=== PATIENT | male | born 1965 | race African-American/Black ===

== ENCOUNTER 2017-09-12 20:49 | Inpatient (IN) | payer OTHER ==
[~2017-09-12] VITALS: Ht 175.3 cm; Wt 86.2 kg
[2017-09-12] MEDS ORDERED: LOSARTAN POTASS25 MG ORAL (21:14)
[2017-09-12] MEDS ORDERED: Morphine Sulfate 4mg/ml Inj IVP ONE (21:30)
--- NOTE | 2017-09-12 21:43 | Emergency Room Report ---
History of Present Illness General Chief Complaint: Abdominal Pain Source: Patient Present Illness HPI 51-year-old male with history of hypertension, diverticulitis 2 years ago, presents with abdominal pain for one day Patient states pain started gradually, localized to mid and left lower quadrant , non radiating, sharp in nature, intermittent. No relieving or exacerbating factors. Severity is 6/10. Pt reports n/v, 10 episodes of nbnb vomiting, 2 episodes of watery non bloody diarrhea Denies fever, chills. No hx of abdominal surgeries. No hx of endoscopies/colonoscopies. Allergies: Coded Allergies: No Known Allergies (Unverified , 09/12/17) Patient History Past Medical History: see triage record Past Surgical History: none Pertinent Family History: none Reviewed Nursing Documentation: PMH: Agreed, PSxH: Agreed Nursing Documentation-PMH Hx Hypertension: Yes Review of Systems All Other Systems: negative except mentioned in HPI Physical Exam Vital Signs Date Time Temp Pulse Resp B/P (MAP) Pulse Ox O2 Delivery O2 Flow Rate FiO2 09/12/17 21:09 98.4 71 18 183/115 98 Room Air Sp02 EP Interpretation: reviewed, normal General Appearance: alert, GCS 15, non-toxic, mild distress Head: normocephalic, atraumatic Eyes: bilateral eye normal inspection, bilateral eye PERRL, bilateral eye EOMI ENT: normal ENT inspection, normal pharynx, normal voice, moist mucus membranes Neck: normal inspection, full range of motion, supple Respiratory: normal inspection, lungs clear, normal breath sounds, no respiratory distress, no retraction, no wheezing, speaking full sentences, chest symmetrical Cardiovascular #1: normal inspection, regular rate, rhythm, no edema, normal capillary refill Cardiovascular #2: 2+ radial (R), 2+ radial (L) Gastrointestinal: soft, non-distended, no guarding, other - +mid and LLQ tenderness Musculoskeletal: normal inspection, back normal, normal range of motion, non- tender Neurologic: normal inspection, alert, oriented x3, responsive, motor strength/ tone normal, sensory intact, normal gait, speech normal Psychiatric: normal inspection, judgement/insight normal, memory normal Skin: normal inspection, normal color, no rash, warm/dry, well hydrated, normal turgor Medical Decision Making Diagnostic Impression: Primary Impression: Abdominal pain Additional Impression: Acute electrocardiogram changes ER Course 51-year-old male with abdominal pain Differential Diagnosis: Gastritis, gastroenteritis, cholecystitis, appendicitis, diverticulitis, SBO, UTI/pyelo Plan: Basic labs, ua, ekg pain control, IVF CT abdopelvis ER course: Patient initially in extreme abdominal pain, given morphine and fluids, pain is now better Initial EKG noted with deep T waves in the inferior leads Troponin is negative Patient always denying any chest pain or shortness of breath, patient initially hypertensive however now normotensive. Heart rate ranging from 70-100 Repeat EKG was performed which showed ST elevations in V1 and V2, with T wave inversions in the inferior leads Patient given 325 of aspirin as well as heparin I spoke with Dr. Avelar at [facility], to activate STEMI notification I talked extensively about patient's case, they do not believe that patient is having an acute coronary syndrome despite the EKG being concerning, as patient never having any chest pain shortness of breath, and patient appears clinically well at this time CT scan was performed which shows possible colonic thickening which shows colitis however no other acute intra-abdominal pathology trop negative x 2 Disposition: Pt to be admitted to telemetry D/W hospitalist Dr Chacon Please note that this Emergency Department Report was dictated using [employer]network development coordinator technology software, occasionally this can lead to erroneous entry secondary to interpretation by the dictation equipment EKG Diagnostic Results EP Interpretation: Yes Rate: normal Rhythm: NSR ST Segments: T-wave inversion noted in the inferior leads, Q wave in aVL ASA given to patient: No EKG Diagnostic Results #2 EP Interpretation: Yes Rate: Tachycardic Rhythm: NSR ST Segments: ST elevation, concave appearance, V1 and V2, T-wave inversions in 23 and aVF ASA given to patient: Yes EKG Diagnostic Results #2 EP Interpretation: Yes Rate: normal Rhythm: NSR ST Segments: ST elevation, again concave appearance, V1 and V2, T-wave inversions in leads 23 and aVF ASA given to patient: Yes Rhythm Strip EP Interpretation: Yes Rate: 71 Rhythm: NSR, no PVCs, no ectopy Chest X-ray CXR: Ordered: Yes 1 view Indication: Chest pain EP interpretation: Yes Interpretation: No consolidation, no effusion, no PTX, no acute cardiopulmonary disease Impression: No acute disease Electronically signed by Erasmo Solomon MD Laboratory Tests Test 09/12/17 21:35 09/13/17 00:11 09/13/17 01:15 White Blood Count 9.3 K/UL (4.8-10.8) Red Blood Count 5.22 M/UL (4.70-6.10) Hemoglobin 15.4 G/DL (14.2-18.0) Hematocrit 48.6 % (42.0-52.0) Mean Corpuscular Volume 93 FL (80-99) Mean Corpuscular Hemoglobin 29.5 PG (27.0-31.0) Mean Corpuscular Hemoglobin Concent 31.7 G/DL (32.0-36.0) L Red Cell Distribution Width 12.0 % (11.6-14.8) Platelet Count 310 K/UL (150-450) Mean Platelet Volume 7.5 FL (6.5-10.1) Neutrophils (%) (Auto) % (45.0-75.0) Lymphocytes (%) (Auto) % (20.0-45.0) Monocytes (%) (Auto) % (1.0-10.0) Eosinophils (%) (Auto) % (0.0-3.0) Basophils (%) (Auto) % (0.0-2.0) Differential Total Cells Counted 100 Neutrophils % (Manual) 86 % (45-75) H Lymphocytes % (Manual) 9 % (20-45) L Monocytes % (Manual) 3 % (1-10) Eosinophils % (Manual) 0 % (0-3) Basophils % (Manual) 0 % (0-2) Band Neutrophils 2 % (0-8) Platelet Estimate Adequate Platelet Morphology Normal Red Blood Cell Morphology Normal Prothrombin Time 10.6 SEC (9.30-11.50) Prothrombin Time INR 1.0 (0.9-1.1) PTT 25 SEC (23-33) Urine Color Pale yellow Urine Appearance Clear Urine pH 7 (4.5-8.0) Urine Specific [place] 1.005 (1.005-1.035) Urine Protein 2+ (NEGATIVE) H Urine Glucose (UA) Negative (NEGATIVE) Urine Ketones 3+ (NEGATIVE) H Urine Occult Blood 1+ (NEGATIVE) H Urine Nitrite Negative (NEGATIVE) Urine Bilirubin Negative (NEGATIVE) Urine Urobilinogen Normal MG/DL (0.0-1.0) Urine Leukocyte Esterase Negative (NEGATIVE) Urine RBC 0-2 /HPF (0 - 0) H Urine WBC 0-2 /HPF (0 - 0) Urine Squamous Epithelial Cells None /LPF (NONE/OCC) Urine Bacteria Few /HPF (NONE) Sodium Level 140 MMOL/L (136-145) Potassium Level 4.0 MMOL/L (3.5-5.1) Chloride Level 102 MMOL/L (98-107) Carbon Dioxide Level 29 MMOL/L (21-32) Anion Gap 10 mmol/L (5-15) Blood Urea Nitrogen 13 mg/dL (7-18) Creatinine 1.4 MG/DL (0.55-1.30) H Estimate Glomerular Filtration Rate 53.9 mL/min (>60) Glucose Level 138 MG/DL (74-106) H Lactic Acid Level 2.20 mmol/L (0.66-2.22) 1.60 mmol/L (0.66-2.22) Calcium Level 10.1 MG/DL (8.5-10.1) Total Bilirubin 0.6 MG/DL (0.2-1.0) Aspartate Amino Transferase (AST) 26 U/L (15-37) Alanine Aminotransferase (ALT) 33 U/L (12-78) Alkaline Phosphatase 85 U/L (46-116) Troponin I 0.000 ng/mL (0.000-0.056) 0.000 ng/mL (0.000-0.056) Total Protein 8.8 G/DL (6.4-8.2) H Albumin 4.5 G/DL (3.4-5.0) Globulin 4.3 g/dL Albumin/Globulin Ratio 1.0 (1.0-2.7) Lipase 82 U/L (73-393) CT/MRI/US Diagnostic Results CT/MRI/US Diagnostic Results : Imaging Test Ordered: CT abdo pelvis Impression CT ABDOMEN & PELVIS With Contrast: No appendicitis, SBO, or diverticulitis. Mild diffuse colonic thickening which may be underdistention versus colitis. No hydronephrosis or ureteral calculus. Possible left nephrolithiasis. Mildly thickened bladder which may be underdistention versus cystitis. Unremarkable gallbladder and pancreas. Last Vital Signs Date Time Temp Pulse Resp B/P (MAP) Pulse Ox O2 Delivery O2 Flow Rate FiO2 09/12/17 21:09 98.4 71 18 183/115 98 Room Air Disposition: ADMITTED INPATIENT Condition: Serious Erasmo Solomon M.D. Sep 12, 2017 21:43
[2017-09-12 21:57] LABS: APPEARANCE,URINE CLEAR; KETONES,URINE 3+ (NEGATIVE); LEUKOCYTE ESTERASE ,URINE NEGATIVE (NEGATIVE); NITRITE,URINE NEGATIVE (NEGATIVE); PH,URINE 7 (4.5-8.0); PROTEIN,URINE 2+ (NEGATIVE); UROBILINOGEN,URINE NORMAL MG/DL (0.0-1.0)
[2017-09-12 22:05] LABS: MEAN CORPUSCULAR HEMOGLOBIN 29.5 PG (27.0-31.0); MEAN CORPUSCULAR HGB CONC 31.7 G/DL (32.0-36.0); MEAN CORPUSCULAR VOLUME 93 FL (80-99); MEAN PLATELET VOLUME 7.5 FL (6.5-10.1); PLATELET COUNT 310 K/UL (150-450); RED BLOOD COUNT 5.22 M/UL (4.70-6.10); WHITE BLOOD COUNT 9.3 K/UL (4.8-10.8)
[2017-09-12 22:11] VITALS: BP 171/102
[2017-09-12 22:22] LABS: ALANINE AMINOTRANSFERASE 33 U/L (12-78); ANION GAP 10 mmol/L (5-15); ASPARTATE AMINO TRANSFERASE 26 U/L (15-37); CALCIUM 10.1 MG/DL (8.5-10.1); CARBON DIOXIDE 29 MMOL/L (21-32); CHLORIDE 102 MMOL/L (98-107); CREATININE 1.4 MG/DL (0.55-1.30); GLOMERULAR FILTRATION RATE 53.9 mL/min (>60); LIPASE 82 U/L (73-393); SODIUM 140 MMOL/L (136-145); TOTAL PROTEIN 8.8 G/DL (6.4-8.2)
[2017-09-12 22:24] LABS: BACTERIA,URINE FEW /HPF; RBC,URINE 0-2 /HPF (0 - 0); WBC,URINE 0-2 /HPF (0 - 0)
[2017-09-12 22:40] LABS: BAND NEUTROPHILS % (MANUAL) 2 % (0-8); BASOPHILS % (MANUAL) 0 % (0-2); EOSINOPHILS % (MANUAL) 0 % (0-3); LYMPHOCYTES % (MANUAL) 9 % (20-45); NEUTROPHILS % (MANUAL) 86 % (45-75); PLATELET ESTIMATE ADEQUATE; PLATELET MORPHOLOGY NORMAL; TOTAL CELLS COUNTED 100
[2017-09-12 22:50] LABS: PROTHROMBIN TIME 10.6 SEC (9.30-11.50)
[2017-09-12 22:54] LABS: REFLEX LACTIC ACID YES OR NO YES
[2017-09-12] MEDS ORDERED: Heparin 25,000u/D5W 500ml 500 ML IV SCH (23:00)
[2017-09-12] MEDS ORDERED: Heparin 5000 units/ml inj IV ONE (23:00)
[2017-09-13 02:04] VITALS: BP 141/87
[2017-09-13] MEDS ORDERED: ATORVASTATIN CA20 MG ORAL (03:56)
[2017-09-13] MEDS ORDERED: LOSARTAN POTASS50 MG ORAL (03:56)
[2017-09-13 04:00] VITALS: BP 147/76
[2017-09-13] MEDS ORDERED: dilTIAZem HCl 25mg/5ml Inj IV PRN (07:00)
[2017-09-13] MEDS ORDERED: Albuterol/Ipratropium 3ml neb HHN PRN (07:00)
[2017-09-13] MEDS ORDERED: Miralax 17gm pkt ORAL PRN (07:00)
[2017-09-13] MEDS ORDERED: Ketorolac 30mg Inj IV PRN (07:00)
[2017-09-13] MEDS ORDERED: Morphine Sulfate 2mg/ml Inj IVP PRN (07:00)
[2017-09-13] MEDS ORDERED: Nitroglycerin Subl 0.4mg tab SL PRN (07:00)
[2017-09-13] MEDS ORDERED: Enalaprilat 2.5mg/2ml Inj IV PRN (07:00)
[2017-09-13 08:00] VITALS: BP 131/90
[2017-09-13] MEDS: Heparin 5000 units/ml inj SUBQ SCH ×4 (09:00→21:03)
[2017-09-13] MEDS: Aspirin Baby 81mg ORAL SCH (09:51)
[2017-09-13] MEDS: Losartan 50mg tab ORAL SCH (09:51)
--- NOTE | 2017-09-13 10:54 | Diagnostic Imaging Report ---
Indication: Chest pain Technique: XRAY Chest 1v Comparison: None Findings: Heart size and mediastinal contours are within normal limits given technique. There is no focal consolidation, pneumothorax or pleural effusion. Osseous structures demonstrate no acute abnormality. Impression: No radiographic evidence of acute cardiopulmonary disease.
[2017-09-13 12:06] VITALS: BP 147/92
--- NOTE | 2017-09-13 12:17 | History and Physical ---
History of Present Illness General Date patient seen: Sep 13, 2017 Reason for Hospitalization: Abdominal Pain Present Illness HPI 51-year-old male with history of hypertension, diverticulosis, presented with abdominal pain for one day, started gradually, localized to mid and left lower quadrant, non radiating, sharp in nature, he was found to have SBP of 180 and admitted to telemetry for hypertensive emergency and abdominal pain. Allergies: Coded Allergies: No Known Allergies (Unverified , 09/12/17) Medication History Scheduled Atorvastatin Calcium* (Atorvastatin Calcium*), 20 MG ORAL BEDTIME, (Reported) Losartan Potassium* (Losartan Potassium*), 50 MG ORAL DAILY, (Reported) Patient History Healthcare decision maker Resuscitation status Full Code Advanced Directive on File Past Medical/Surgical History Past Medical/Surgical History: (1) Diverticulosis Review of Systems All Other Systems: negative except mentioned in HPI Physical Exam General Appearance: WD/WN, no apparent distress Lines, tubes and drains: peripheral Neck: non-tender, supple Respiratory/Chest: chest wall non-tender, lungs clear Cardiovascular/Chest: normal peripheral pulses Abdomen: normal bowel sounds, non tender Genitourinary/Rectal: normal genital exam Last 24 Hour Vital Signs Date Time Temp Pulse Resp B/P (MAP) Pulse Ox O2 Delivery O2 Flow Rate FiO2 09/13/17 09:51 131/90 09/13/17 08:00 97.9 75 21 131/90 100 09/13/17 08:00 92 09/13/17 04:00 90 09/13/17 04:00 98.0 86 20 147/76 96 Room Air 09/13/17 03:30 98.4 97 20 141/87 98 Room Air 09/13/17 02:04 98.4 97 20 141/87 98 Room Air 09/12/17 22:11 98.4 72 19 171/102 98 Room Air 09/12/17 21:09 98.4 71 18 183/115 98 Room Air Intake and Output 09/13/17 09/14/17 19:00 07:00 Intake Total 120 ml Balance 120 ml Intake Oral 120 ml Laboratory Tests Test 09/12/17 21:35 09/13/17 00:11 09/13/17 01:15 09/13/17 08:40 White Blood Count 9.3 K/UL (4.8-10.8) Red Blood Count 5.22 M/UL (4.70-6.10) Hemoglobin 15.4 G/DL (14.2-18.0) Hematocrit 48.6 % (42.0-52.0) Mean Corpuscular Volume 93 FL (80-99) Mean Corpuscular Hemoglobin 29.5 PG (27.0-31.0) Mean Corpuscular Hemoglobin Concent 31.7 G/DL (32.0-36.0) L Red Cell Distribution Width 12.0 % (11.6-14.8) Platelet Count 310 K/UL (150-450) Mean Platelet Volume 7.5 FL (6.5-10.1) Neutrophils (%) (Auto) % (45.0-75.0) Lymphocytes (%) (Auto) % (20.0-45.0) Monocytes (%) (Auto) % (1.0-10.0) Eosinophils (%) (Auto) % (0.0-3.0) Basophils (%) (Auto) % (0.0-2.0) Differential Total Cells Counted 100 Neutrophils % (Manual) 86 % (45-75) H Lymphocytes % (Manual) 9 % (20-45) L Monocytes % (Manual) 3 % (1-10) Eosinophils % (Manual) 0 % (0-3) Basophils % (Manual) 0 % (0-2) Band Neutrophils 2 % (0-8) Platelet Estimate Adequate Platelet Morphology Normal Red Blood Cell Morphology Normal Prothrombin Time 10.6 SEC (9.30-11.50) Prothromb Time International Ratio 1.0 (0.9-1.1) Activated Partial Thromboplast Time 25 SEC (23-33) Urine Color Pale yellow Urine Appearance Clear Urine pH 7 (4.5-8.0) Urine Specific [place] 1.005 (1.005-1.035) Urine Protein 2+ (NEGATIVE) H Urine Glucose (UA) Negative (NEGATIVE) Urine Ketones 3+ (NEGATIVE) H Urine Occult Blood 1+ (NEGATIVE) H Urine Nitrite Negative (NEGATIVE) Urine Bilirubin Negative (NEGATIVE) Urine Urobilinogen Normal MG/DL (0.0-1.0) Urine Leukocyte Esterase Negative (NEGATIVE) Urine RBC 0-2 /HPF (0 - 0) H Urine WBC 0-2 /HPF (0 - 0) Urine Squamous Epithelial Cells None /LPF (NONE/OCC) Urine Bacteria Few /HPF (NONE) Sodium Level 140 MMOL/L (136-145) Potassium Level 4.0 MMOL/L (3.5-5.1) Chloride Level 102 MMOL/L (98-107) Carbon Dioxide Level 29 MMOL/L (21-32) Anion Gap 10 mmol/L (5-15) Blood Urea Nitrogen 13 mg/dL (7-18) Creatinine 1.4 MG/DL (0.55-1.30) H Estimat Glomerular Filtration Rate 53.9 mL/min (>60) Glucose Level 138 MG/DL (74-106) H Lactic Acid Level 2.20 mmol/L (0.66-2.22) 1.60 mmol/L (0.66-2.22) Calcium Level 10.1 MG/DL (8.5-10.1) Total Bilirubin 0.6 MG/DL (0.2-1.0) Aspartate Amino Transf (AST/SGOT) 26 U/L (15-37) Alanine Aminotransferase (ALT/SGPT) 33 U/L (12-78) Alkaline Phosphatase 85 U/L (46-116) Troponin I 0.000 ng/mL (0.000-0.056) 0.000 ng/mL (0.000-0.056) 0.000 ng/mL (0.000-0.056) Total Protein 8.8 G/DL (6.4-8.2) H Albumin 4.5 G/DL (3.4-5.0) Globulin 4.3 g/dL Albumin/Globulin Ratio 1.0 (1.0-2.7) Lipase 82 U/L (73-393) Height (Feet): 5 Height (Inches): 9.00 Weight (Pounds): 190 Medications Current Medications Medications (Trade) Dose Ordered Sig/Endy Route PRN Reason Start Time Stop Time Status Last Admin Dose Admin Acetaminophen (Tylenol) 650 mg Q4H PRN ORAL FEVER (temp > 100.5F) 09/13/17 07:00 10/13/17 06:59 Albuterol/ Ipratropium (Albuterol/ Ipratropium) 3 ml Q4H PRN HHN Shortness of Breath 09/13/17 07:00 09/18/17 06:59 Aspirin (ASA) 162 mg DAILY ORAL 09/13/17 09:00 10/13/17 08:59 09/13/17 09:51 Atorvastatin Calcium (Lipitor) 20 mg BEDTIME ORAL 09/13/17 21:00 10/13/17 20:59 Diltiazem HCl (Cardizem) 10 mg Q1H PRN IV heart rate more than 120, 09/13/17 07:00 10/13/17 06:59 Enalaprilat (Vasotec) 2.5 mg Q6H PRN IV sbp more than 160 09/13/17 07:00 10/13/17 06:59 Heparin Sodium (Porcine) (Heparin 5000 units/ml) 5,000 units EVERY 12 HOURS SUBQ 09/13/17 09:00 10/13/17 08:59 Ketorolac Tromethamine (Toradol 30mg) 30 mg Q6H PRN IV moderate pain ( 4-6) 09/13/17 07:00 09/18/17 06:59 Losartan Potassium (Cozaar) 50 mg DAILY ORAL 09/13/17 09:00 10/13/17 08:59 09/13/17 09:51 Morphine Sulfate (Morphine Sulfate) 2 mg Q4H PRN IVP severe Pain (Pain Scale 7-10) 09/13/17 07:00 09/20/17 06:59 Nitroglycerin (Ntg) 0.4 mg Q5M PRN SL Prn Chest Pain 09/13/17 07:00 10/13/17 06:59 Ondansetron HCl (Zofran) 4 mg Q6H PRN IVP Nausea & Vomiting 09/13/17 07:00 10/13/17 06:59 Polyethylene Glycol (Miralax) 17 gm DAILYPRN PRN ORAL Constipation 09/13/17 07:00 10/13/17 06:59 Temazepam (Restoril) 15 mg HSPRN PRN ORAL Insomnia 09/13/17 07:00 09/20/17 06:59 Assessment/Plan Problem List: (1) Hypertensive emergency ICD Codes: I16.1 - Hypertensive emergency SNOMED: 762274424256340 (2) Abdominal pain ICD Codes: R10.9 - Unspecified abdominal pain SNOMED: 14064874 (3) Diverticulosis ICD Codes: K57.90 - Diverticulosis of intestine, part unspecified, without perforation or abscess without bleeding SNOMED: 753263830 Assessment/Plan telemetry monitoring symptomatic treatment GI and Cardio to see. bp control TIAN GAMEZ Sep 13, 2017 12:17
--- NOTE | 2017-09-13 12:34 | GI Initial Consult Note ---
History of Present Illness General Date patient seen: Sep 13, 2017 Time patient seen: 12:30 Reason for Hospitalization: Abdominal Pain Referring physician: TIAN MOJICA Reason for Consultation: Abdominal Pain Present Illness HPI 51-year-old male with history of hypertension, diverticulitis 2 years ago, presents with abdominal pain for one day Patient states pain started gradually, localized to mid and left lower quadrant , non radiating, sharp in nature, intermittent. No relieving or exacerbating factors. Severity is 6/10. Pt reports n/v, 10 episodes of nbnb vomiting, 2 episodes of watery non bloody diarrhea Denies fever, chills. No hx of abdominal surgeries. No hx of endoscopies/colonoscopies. GI consulted for abdominal pain. HPI as noted above. Pt seen on floor, awake A&Ox4 NAD with no active s/sx of N/V/D. States his abdominal pain has greatly improved, contributes recent abdominal pain to recent dietary change. Denies any watery diarrhea, but has loose stool. No leukocytosis. No history of endoscopies / colonoscopies. CT AP pending. Home Meds Reported Medications Losartan Potassium* (LOSARTAN POTASSIUM*) 50 Mg Tablet, 50 MG ORAL DAILY, TAB 09/13/17 Atorvastatin Calcium* (ATORVASTATIN CALCIUM*) 20 Mg Tablet, 20 MG ORAL BEDTIME, TAB 09/13/17 Med list reviewed/reconciled: Yes Allergies: Coded Allergies: No Known Allergies (Unverified , 09/12/17) Patient History History Provided By: Patient, Medical Record PMH Narrative Past Medical History: see triage record Past Surgical History: none Pertinent Family History: none Reviewed Nursing Documentation: PMH: Agreed, PSxH: Agreed Nursing Documentation-PMH Hx Hypertension: Yes Social History: Denies: smoking, alcohol use, drug use, other Review of Systems All Other Systems: negative except mentioned in HPI Physical Exam Vital Signs Date Time Temp Pulse Resp B/P (MAP) Pulse Ox O2 Delivery O2 Flow Rate FiO2 09/12/17 21:09 98.4 71 18 183/115 98 Room Air Sp02 EP Interpretation: reviewed, normal Labs Laboratory Tests Test 09/12/17 21:35 09/13/17 00:11 09/13/17 01:15 09/13/17 08:40 White Blood Count 9.3 K/UL (4.8-10.8) Red Blood Count 5.22 M/UL (4.70-6.10) Hemoglobin 15.4 G/DL (14.2-18.0) Hematocrit 48.6 % (42.0-52.0) Mean Corpuscular Volume 93 FL (80-99) Mean Corpuscular Hemoglobin 29.5 PG (27.0-31.0) Mean Corpuscular Hemoglobin Concent 31.7 G/DL (32.0-36.0) L Red Cell Distribution Width 12.0 % (11.6-14.8) Platelet Count 310 K/UL (150-450) Mean Platelet Volume 7.5 FL (6.5-10.1) Neutrophils (%) (Auto) % (45.0-75.0) Lymphocytes (%) (Auto) % (20.0-45.0) Monocytes (%) (Auto) % (1.0-10.0) Eosinophils (%) (Auto) % (0.0-3.0) Basophils (%) (Auto) % (0.0-2.0) Differential Total Cells Counted 100 Neutrophils % (Manual) 86 % (45-75) H Lymphocytes % (Manual) 9 % (20-45) L Monocytes % (Manual) 3 % (1-10) Eosinophils % (Manual) 0 % (0-3) Basophils % (Manual) 0 % (0-2) Band Neutrophils 2 % (0-8) Platelet Estimate Adequate Platelet Morphology Normal Red Blood Cell Morphology Normal Prothrombin Time 10.6 SEC (9.30-11.50) Prothromb Time International Ratio 1.0 (0.9-1.1) Activated Partial Thromboplast Time 25 SEC (23-33) Urine Color Pale yellow Urine Appearance Clear Urine pH 7 (4.5-8.0) Urine Specific [place] 1.005 (1.005-1.035) Urine Protein 2+ (NEGATIVE) H Urine Glucose (UA) Negative (NEGATIVE) Urine Ketones 3+ (NEGATIVE) H Urine Occult Blood 1+ (NEGATIVE) H Urine Nitrite Negative (NEGATIVE) Urine Bilirubin Negative (NEGATIVE) Urine Urobilinogen Normal MG/DL (0.0-1.0) Urine Leukocyte Esterase Negative (NEGATIVE) Urine RBC 0-2 /HPF (0 - 0) H Urine WBC 0-2 /HPF (0 - 0) Urine Squamous Epithelial Cells None /LPF (NONE/OCC) Urine Bacteria Few /HPF (NONE) Sodium Level 140 MMOL/L (136-145) Potassium Level 4.0 MMOL/L (3.5-5.1) Chloride Level 102 MMOL/L (98-107) Carbon Dioxide Level 29 MMOL/L (21-32) Anion Gap 10 mmol/L (5-15) Blood Urea Nitrogen 13 mg/dL (7-18) Creatinine 1.4 MG/DL (0.55-1.30) H Estimat Glomerular Filtration Rate 53.9 mL/min (>60) Glucose Level 138 MG/DL (74-106) H Lactic Acid Level 2.20 mmol/L (0.66-2.22) 1.60 mmol/L (0.66-2.22) Calcium Level 10.1 MG/DL (8.5-10.1) Total Bilirubin 0.6 MG/DL (0.2-1.0) Aspartate Amino Transf (AST/SGOT) 26 U/L (15-37) Alanine Aminotransferase (ALT/SGPT) 33 U/L (12-78) Alkaline Phosphatase 85 U/L (46-116) Troponin I 0.000 ng/mL (0.000-0.056) 0.000 ng/mL (0.000-0.056) 0.000 ng/mL (0.000-0.056) Total Protein 8.8 G/DL (6.4-8.2) H Albumin 4.5 G/DL (3.4-5.0) Globulin 4.3 g/dL Albumin/Globulin Ratio 1.0 (1.0-2.7) Lipase 82 U/L (73-393) General Appearance: well appearing, no apparent distress, alert Head: normocephalic EENT: PERRL/EOMI, normal ENT inspection Neck: supple Respiratory: normal breath sounds, no respiratory distress Cardiovascular: normal rate Gastrointestinal: normal inspection, non tender, soft, normal bowel sounds, non -distended Rectal: deferred Genitourinary: deferred Musculoskeletal: normal inspection, back normal Neurologic: normal inspection, alert, oriented x3, responsive Psychiatric: normal inspection, judgement/insight normal, memory normal Skin: normal inspection, normal color, no rash, warm/dry, palpation normal, well hydrated Lymphatic: normal inspection, no adenopathy Current Medications Current Medications Medications (Trade) Dose Ordered Sig/Endy Route PRN Reason Start Time Stop Time Status Last Admin Dose Admin Acetaminophen (Tylenol) 650 mg Q4H PRN ORAL FEVER (temp > 100.5F) 09/13/17 07:00 10/13/17 06:59 Albuterol/ Ipratropium (Albuterol/ Ipratropium) 3 ml Q4H PRN HHN Shortness of Breath 09/13/17 07:00 09/18/17 06:59 Aspirin (ASA) 162 mg DAILY ORAL 09/13/17 09:00 10/13/17 08:59 09/13/17 09:51 Atorvastatin Calcium (Lipitor) 20 mg BEDTIME ORAL 09/13/17 21:00 10/13/17 20:59 Diltiazem HCl (Cardizem) 10 mg Q1H PRN IV heart rate more than 120, 09/13/17 07:00 10/13/17 06:59 Enalaprilat (Vasotec) 2.5 mg Q6H PRN IV sbp more than 160 09/13/17 07:00 10/13/17 06:59 Heparin Sodium (Porcine) (Heparin 5000 units/ml) 5,000 units EVERY 12 HOURS SUBQ 09/13/17 09:00 10/13/17 08:59 Ketorolac Tromethamine (Toradol 30mg) 30 mg Q6H PRN IV moderate pain ( 4-6) 09/13/17 07:00 09/18/17 06:59 Losartan Potassium (Cozaar) 50 mg DAILY ORAL 09/13/17 09:00 10/13/17 08:59 09/13/17 09:51 Morphine Sulfate (Morphine Sulfate) 2 mg Q4H PRN IVP severe Pain (Pain Scale 7-10) 09/13/17 07:00 09/20/17 06:59 Nitroglycerin (Ntg) 0.4 mg Q5M PRN SL Prn Chest Pain 09/13/17 07:00 10/13/17 06:59 Ondansetron HCl (Zofran) 4 mg Q6H PRN IVP Nausea & Vomiting 09/13/17 07:00 10/13/17 06:59 Polyethylene Glycol (Miralax) 17 gm DAILYPRN PRN ORAL Constipation 09/13/17 07:00 10/13/17 06:59 Temazepam (Restoril) 15 mg HSPRN PRN ORAL Insomnia 09/13/17 07:00 09/20/17 06:59 GI: Plan Problems: (1) Diarrhea (2) Abdominal pain (3) Diverticulitis Plan hx of diverticulitis 2 years ago symptomatic treatment fu CT AP regular diet pain mgmt Imodium prn fu labs outpatient colonoscopy given history of diverticulitis Discussed with Dr. Seay. Thank you for this patient referral, we will follow. Fidelia Villarreal N.P. Sep 13, 2017 12:34
[2017-09-13 16:00] VITALS: BP 157/89
--- NOTE | 2017-09-13 17:33 | Cardiology Progress Note ---
Assessment/Plan Assessment/Plan abn ekg unkown chronity no s of ischemai lexiscan perfusion imagin in ligh to [place] chronicity of t inversion [id number] Objective Last 24 Hour Vital Signs Date Time Temp Pulse Resp B/P (MAP) Pulse Ox O2 Delivery O2 Flow Rate FiO2 09/13/17 16:00 76 09/13/17 16:00 98.1 70 18 157/89 99 Room Air 09/13/17 12:06 97.7 67 21 147/92 99 09/13/17 12:00 84 09/13/17 09:51 131/90 09/13/17 08:00 97.9 75 21 131/90 100 09/13/17 08:00 92 09/13/17 04:00 90 09/13/17 04:00 98.0 86 20 147/76 96 Room Air 09/13/17 03:30 98.4 97 20 141/87 98 Room Air 09/13/17 02:04 98.4 97 20 141/87 98 Room Air 09/12/17 22:11 98.4 72 19 171/102 98 Room Air 09/12/17 21:09 98.4 71 18 183/115 98 Room Air Intake and Output 09/13/17 09/14/17 19:00 07:00 Intake Total 240 ml Balance 240 ml Intake Oral 240 ml Laboratory Tests Test 09/12/17 21:35 09/13/17 00:11 09/13/17 01:15 09/13/17 08:40 White Blood Count 9.3 K/UL (4.8-10.8) Red Blood Count 5.22 M/UL (4.70-6.10) Hemoglobin 15.4 G/DL (14.2-18.0) Hematocrit 48.6 % (42.0-52.0) Mean Corpuscular Volume 93 FL (80-99) Mean Corpuscular Hemoglobin 29.5 PG (27.0-31.0) Mean Corpuscular Hemoglobin Concent 31.7 G/DL (32.0-36.0) L Red Cell Distribution Width 12.0 % (11.6-14.8) Platelet Count 310 K/UL (150-450) Mean Platelet Volume 7.5 FL (6.5-10.1) Neutrophils (%) (Auto) % (45.0-75.0) Lymphocytes (%) (Auto) % (20.0-45.0) Monocytes (%) (Auto) % (1.0-10.0) Eosinophils (%) (Auto) % (0.0-3.0) Basophils (%) (Auto) % (0.0-2.0) Differential Total Cells Counted 100 Neutrophils % (Manual) 86 % (45-75) H Lymphocytes % (Manual) 9 % (20-45) L Monocytes % (Manual) 3 % (1-10) Eosinophils % (Manual) 0 % (0-3) Basophils % (Manual) 0 % (0-2) Band Neutrophils 2 % (0-8) Platelet Estimate Adequate Platelet Morphology Normal Red Blood Cell Morphology Normal Prothrombin Time 10.6 SEC (9.30-11.50) Prothromb Time International Ratio 1.0 (0.9-1.1) Activated Partial Thromboplast Time 25 SEC (23-33) Urine Color Pale yellow Urine Appearance Clear Urine pH 7 (4.5-8.0) Urine Specific [place] 1.005 (1.005-1.035) Urine Protein 2+ (NEGATIVE) H Urine Glucose (UA) Negative (NEGATIVE) Urine Ketones 3+ (NEGATIVE) H Urine Occult Blood 1+ (NEGATIVE) H Urine Nitrite Negative (NEGATIVE) Urine Bilirubin Negative (NEGATIVE) Urine Urobilinogen Normal MG/DL (0.0-1.0) Urine Leukocyte Esterase Negative (NEGATIVE) Urine RBC 0-2 /HPF (0 - 0) H Urine WBC 0-2 /HPF (0 - 0) Urine Squamous Epithelial Cells None /LPF (NONE/OCC) Urine Bacteria Few /HPF (NONE) Sodium Level 140 MMOL/L (136-145) Potassium Level 4.0 MMOL/L (3.5-5.1) Chloride Level 102 MMOL/L (98-107) Carbon Dioxide Level 29 MMOL/L (21-32) Anion Gap 10 mmol/L (5-15) Blood Urea Nitrogen 13 mg/dL (7-18) Creatinine 1.4 MG/DL (0.55-1.30) H Estimat Glomerular Filtration Rate 53.9 mL/min (>60) Glucose Level 138 MG/DL (74-106) H Lactic Acid Level 2.20 mmol/L (0.66-2.22) 1.60 mmol/L (0.66-2.22) Calcium Level 10.1 MG/DL (8.5-10.1) Total Bilirubin 0.6 MG/DL (0.2-1.0) Aspartate Amino Transf (AST/SGOT) 26 U/L (15-37) Alanine Aminotransferase (ALT/SGPT) 33 U/L (12-78) Alkaline Phosphatase 85 U/L (46-116) Troponin I 0.000 ng/mL (0.000-0.056) 0.000 ng/mL (0.000-0.056) 0.000 ng/mL (0.000-0.056) Total Protein 8.8 G/DL (6.4-8.2) H Albumin 4.5 G/DL (3.4-5.0) Globulin 4.3 g/dL Albumin/Globulin Ratio 1.0 (1.0-2.7) Lipase 82 U/L (73-393) LIZ HOLLIS Sep 13, 2017 17:33
[2017-09-13] MEDS ORDERED: Lexiscan 0.4mg/5ml syringe IV PRN (17:45)
[2017-09-13 20:00] VITALS: BP 139/88
[2017-09-13] MEDS: Atorvastatin 20mg tab ORAL SCH (21:01)
[2017-09-14] VITALS: BP 143/90
[2017-09-14 04:00] VITALS: BP 138/90
--- NOTE | 2017-09-14 04:15 | Consultation ---
DATE OF CONSULTATION: 09/13/2017 CARDIOLOGY CONSULTATION CONSULTING PHYSICIAN: Sunny Grace M.D. REFERRING PHYSICIAN: Wilmer Chacon M.D. REASON FOR REFERRAL: Abnormal electrocardiogram. HISTORY OF PRESENT ILLNESS: This is a 51-year-old gentleman who presented to the hospital because of abdominal pain and nausea and vomiting. He did not really have any chest pain or shortness of breath. There is no PND. No orthopnea. No palpitation. No dizziness on standing. He is usually quite active. He has been walking recently as 1 week ago. He had never experienced any chest pain or shortness of breath. He absolutely denies any pain, pressure, or discomfort in the chest, just GI issues. The patient was not feeling well. He went to the [facility]. His blood pressure was noted to be significantly elevated and was told to come to the emergency room. PAST MEDICAL HISTORY: Positive for high blood pressure and high cholesterol. No history of heart attack. No cancer. No stroke. No hepatitis. He has a history of positive PPD and may be treated for tuberculosis before. No ulcers. No kidney problems. No thyroid problems. No anemia or arthritis. He does have a history of asthma. No deep venous thrombosis. No HIV or AIDS from prior surgeries. He has had a history of diverticulitis 2 years ago. ALLERGIES: He is not allergic to any medications. SOCIAL HISTORY: He smokes marijuana daily. He does drink socially and does not use any other kind of drugs. Does not smoke tobacco. REVIEW OF SYSTEMS: GASTROINTESTINAL: No diarrhea or constipation. No bloody or black stool. GENITOURINARY: Negative. PULMONARY: Negative. CONSTITUTIONAL: He has a lot of night sweats. PHYSICAL EXAMINATION: GENERAL: Shows to be middle-aged gentleman, in no respiratory distress. VITAL SIGNS: Blood pressure 131/90 to 157/89. NECK: Supple. No jugular venous distention. No abdominojugular reflux noted. LUNGS: Clear to auscultation and percussion. CARDIAC EXAMINATION: S1 is normal. S2 is normal. Regular rate and rhythm. No heaves, thrills, gallops, or rubs are noted. ABDOMEN: Soft and nontender. Positive bowel sounds. EXTREMITIES: There is no clubbing, cyanosis, nor is there any edema. NEUROLOGICAL: He is awake, alert, responsive, and in no apparent respiratory distress. LABORATORY AND DIAGNOSTIC DATA: White count of 9.3, hemoglobin 15.4, and platelet count of 310. His 3 sets of cardiac enzymes are negative. Lactic acid was normal. His sodium was 140, potassium 4.0, chloride 102, bicarbonate 29, BUN 13, creatinine 1.4, and glucose of 138. Liver function tests are all normal. Coags, INR is 1.0 and PTT 25. Urinalysis is 0 to 2 wbc's. His electrocardiogram shows sinus with sinus bradycardia. He had T-wave inversions in II, III and aVF. The chronicity of which is unknown. ASSESSMENT AND PLAN: 1. Hypertension initially poorly controlled. 2. Abdominal pain, nausea and vomiting, questionably related to uncontrolled hypertension. 3. History of diverticulitis. 4. Abnormal electrocardiogram. PLAN: Dr. Chacon, this patient was seen in cardiac consultation. The patient's abnormal electrocardiogram is concerning however his cardiac enzymes are all negative. He really does not have any chest pain, pressure, or shortness of breath. He may have had his stress test in May the results of which are unknown to the patient and the reason why he had it done is also unknown. Nevertheless, because his electrocardiogram abnormality and the fact he does have some several risk factors for coronary disease may be reasonable for him to undergo stress testing. I will order that for tomorrow morning. He is able to exercise and we will see if anything abnormal. Because he has several risk factors and abnormal electrocardiogram, I think it is reasonable for him to undergo a perfusion imaging. In light of the fact the chronicity of the T-wave inversions are unknown rather he does not have any exercise-induced stress test rather than myocardial perfusion with Lexiscan. This will be ordered for tomorrow morning. An echocardiogram is to be done. Of note, the patient did have a chest x-ray that was fairly unremarkable and at this time is fine. Sunny Grace M.D. DR: VANESSA JOB#: [id number] CC:
--- NOTE | 2017-09-14 07:45 | Pulmonology Progress Note ---
Assessment/Plan Assessment/Plan ASSESSMENT Abdominal pain HTN urgency acute ECG changes Diverticulosis with hx of diverticulitis diarrhea PLAN OF CARE Tele Serial troponin negative Cardio eval appreciated free of cardiac complaints ECHO with pEF 60% and RVSP of 35 due to abnormal ECG and unknown chronicity cardio recommend stress test stress test done, results pending O2 HHN prn CXR negative BP management with ARB, optimize further as needed Continue ASA and statin pain management CT A/P results pending GI follows Imodium prn outpatient colonoscopy symptomatic treatment DVT prophylaxis dc plan for tomorrow if stress test negative case discussed and evaluated by supervising physician Subjective Allergies: Coded Allergies: No Known Allergies (Unverified , 09/12/17) Subjective denies chest pain , SOB seen and evaluated by cardio Objective Last 24 Hour Vital Signs Date Time Temp Pulse Resp B/P (MAP) Pulse Ox O2 Delivery O2 Flow Rate FiO2 09/14/17 04:00 83 09/14/17 04:00 97.7 64 16 138/90 96 Room Air 09/14/17 00:00 98.1 71 18 143/90 97 Room Air 09/14/17 00:00 78 09/13/17 21:31 74 18 Room Air 09/13/17 20:00 98.2 78 20 139/88 98 Room Air 09/13/17 20:00 90 09/13/17 16:00 76 09/13/17 16:00 98.1 70 18 157/89 99 Room Air 09/13/17 12:06 97.7 67 21 147/92 99 09/13/17 12:00 84 09/13/17 09:51 131/90 09/13/17 08:00 97.9 75 21 131/90 100 09/13/17 08:00 92 General Appearance: no acute distress HEENT: normocephalic, atraumatic, anicteric, mucous membranes moist, PERRL Respiratory/Chest: normal breath sounds, no respiratory distress, no accessory muscle use Cardiovascular: regular rhythm - SR on tele Abdomen: normal bowel sounds, soft, non tender, non distended 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 II-XII grossly normal, no motor/sensory deficits, alert, oriented x 3, responsive Musculoskeletal: normal muscle bulk Microbiology Date/Time Source Procedure Growth Status 09/13/17 00:11 Blood Blood Culture - Preliminary NO GROWTH AFTER 24 HOURS Resulted 09/12/17 21:35 Blood Blood Culture - Preliminary NO GROWTH AFTER 24 HOURS Resulted Laboratory Tests 09/13/17 08:40: Troponin I 0.000 Current Medications Medications (Trade) Dose Ordered Sig/Endy Route PRN Reason Start Time Stop Time Status Last Admin Dose Admin Acetaminophen (Tylenol) 650 mg Q4H PRN ORAL FEVER (temp > 100.5F) 09/13/17 07:00 10/13/17 06:59 Albuterol/ Ipratropium (Albuterol/ Ipratropium) 3 ml Q4H PRN HHN Shortness of Breath 09/13/17 07:00 09/18/17 06:59 Aspirin (ASA) 162 mg DAILY ORAL 09/13/17 09:00 10/13/17 08:59 09/13/17 09:51 Atorvastatin Calcium (Lipitor) 20 mg BEDTIME ORAL 09/13/17 21:00 10/13/17 20:59 09/13/17 21:01 Diltiazem HCl (Cardizem) 10 mg Q1H PRN IV heart rate more than 120, 09/13/17 07:00 10/13/17 06:59 Enalaprilat (Vasotec) 2.5 mg Q6H PRN IV sbp more than 160 09/13/17 07:00 10/13/17 06:59 Heparin Sodium (Porcine) (Heparin 5000 units/ml) 5,000 units EVERY 12 HOURS SUBQ 09/13/17 09:00 10/13/17 08:59 Ketorolac Tromethamine (Toradol 30mg) 30 mg Q6H PRN IV moderate pain ( 4-6) 09/13/17 07:00 09/18/17 06:59 Losartan Potassium (Cozaar) 50 mg DAILY ORAL 09/13/17 09:00 10/13/17 08:59 09/13/17 09:51 Morphine Sulfate (Morphine Sulfate) 2 mg Q4H PRN IVP severe Pain (Pain Scale 7-10) 09/13/17 07:00 09/20/17 06:59 Nitroglycerin (Ntg) 0.4 mg Q5M PRN SL Prn Chest Pain 09/13/17 07:00 10/13/17 06:59 Ondansetron HCl (Zofran) 4 mg Q6H PRN IVP Nausea & Vomiting 09/13/17 07:00 10/13/17 06:59 Polyethylene Glycol (Miralax) 17 gm DAILYPRN PRN ORAL Constipation 09/13/17 07:00 10/13/17 06:59 Regadenoson (Lexiscan) 0.4 mg ONCE PRN IV STRESS TEST 09/13/17 17:45 09/14/17 23:59 Temazepam (Restoril) 15 mg HSPRN PRN ORAL Insomnia 09/13/17 07:00 09/20/17 06:59 Geovanni ([facility])Sonya NP Sep 14, 2017 07:45
[2017-09-14 08:00] VITALS: BP 145/91
[2017-09-14] MEDS: Heparin 5000 units/ml inj SUBQ SCH ×2 (09:00→20:51)
[2017-09-14] MEDS: Losartan 50mg tab ORAL SCH (09:52)
[2017-09-14] MEDS: Aspirin Baby 81mg ORAL SCH (09:52)
[2017-09-14 10:01] LABS: BASOPHILS % (AUTO) 0.9 % (0.0-2.0); EOSINOPHILS % (AUTO) 7.3 % (0.0-3.0); LYMPHOCYTES % (AUTO) 33.3 % (20.0-45.0); MEAN CORPUSCULAR HEMOGLOBIN 31.9 PG (27.0-31.0); MEAN CORPUSCULAR HGB CONC 34.2 G/DL (32.0-36.0); MEAN CORPUSCULAR VOLUME 93 FL (80-99); MEAN PLATELET VOLUME 7.7 FL (6.5-10.1); MONOCYTES % (AUTO) 8.7 % (1.0-10.0); NEUTROPHILS % (AUTO) 49.9 % (45.0-75.0); PLATELET COUNT 247 K/UL (150-450); RED BLOOD COUNT 4.41 M/UL (4.70-6.10); RED CELL DISTRIBUTION WIDTH 12.3 % (11.6-14.8); WHITE BLOOD COUNT 4.1 K/UL (4.8-10.8)
[2017-09-14 10:11] LABS: PROTHROMBIN TIME 10.7 SEC (9.30-11.50)
--- NOTE | 2017-09-14 10:38 | GI Progress Note ---
Assessment/Plan Problems: (1) Diverticulitis ICD Codes: K57.92 - Diverticulitis of intestine, part unspecified, without perforation or abscess without bleeding SNOMED: 078313097 (2) Abdominal pain ICD Codes: R10.9 - Unspecified abdominal pain SNOMED: 98772551 (3) Diarrhea ICD Codes: R19.7 - Diarrhea, unspecified SNOMED: 54772492 (4) Diverticulosis ICD Codes: K57.90 - Diverticulosis of intestine, part unspecified, without perforation or abscess without bleeding SNOMED: 775413530 Status: stable Status Narrative Discussed with Dr. Seay. Assessment/Plan hx of diverticulitis 2 years ago okay for DC per GI standpoint symptomatic treatment fu CT AP regular diet pain mgmt Imodium prn fu labs outpatient colonoscopy given history of diverticulitis Subjective Gastrointestinal/Abdominal: Reports: no symptoms Objective Last 24 Hour Vital Signs Date Time Temp Pulse Resp B/P (MAP) Pulse Ox O2 Delivery O2 Flow Rate FiO2 09/14/17 09:52 145/91 09/14/17 08:00 97.5 80 16 145/91 96 Room Air 09/14/17 04:00 83 09/14/17 04:00 97.7 64 16 138/90 96 Room Air 09/14/17 00:00 98.1 71 18 143/90 97 Room Air 09/14/17 00:00 78 09/13/17 21:31 74 18 Room Air 09/13/17 20:00 98.2 78 20 139/88 98 Room Air 09/13/17 20:00 90 09/13/17 16:00 76 09/13/17 16:00 98.1 70 18 157/89 99 Room Air 09/13/17 12:06 97.7 67 21 147/92 99 09/13/17 12:00 84 Laboratory Tests Test 09/14/17 09:35 White Blood Count 4.1 K/UL (4.8-10.8) #L Red Blood Count 4.41 M/UL (4.70-6.10) L Hemoglobin 14.1 G/DL (14.2-18.0) L Hematocrit 41.2 % (42.0-52.0) L Mean Corpuscular Volume 93 FL (80-99) Mean Corpuscular Hemoglobin 31.9 PG (27.0-31.0) H Mean Corpuscular Hemoglobin Concent 34.2 G/DL (32.0-36.0) Red Cell Distribution Width 12.3 % (11.6-14.8) Platelet Count 247 K/UL (150-450) Mean Platelet Volume 7.7 FL (6.5-10.1) Neutrophils (%) (Auto) 49.9 % (45.0-75.0) Lymphocytes (%) (Auto) 33.3 % (20.0-45.0) Monocytes (%) (Auto) 8.7 % (1.0-10.0) Eosinophils (%) (Auto) 7.3 % (0.0-3.0) H Basophils (%) (Auto) 0.9 % (0.0-2.0) Prothrombin Time 10.7 SEC (9.30-11.50) Prothromb Time International Ratio 1.0 (0.9-1.1) Activated Partial Thromboplast Time 26 SEC (23-33) Troponin I Pending C-Reactive Protein, Quantitative Pending Triglycerides Level Pending Cholesterol Level Pending LDL Cholesterol Pending HDL Cholesterol Pending Cholesterol/HDL Ratio Pending Thyroid Stimulating Hormone (TSH) Pending Height (Feet): 5 Height (Inches): 9.00 Weight (Pounds): 190 General Appearance: WD/WN, no apparent distress, alert Cardiovascular: normal rate Respiratory/Chest: normal breath sounds, no respiratory distress Abdominal Exam: normal bowel sounds, non tender, soft Extremities: normal range of motion, non-tender Fidelia Villarreal N.P. Sep 14, 2017 10:38
[2017-09-14] MEDS ORDERED: Lexiscan 0.4mg/5ml syringe IV ONE (10:45)
[2017-09-14 10:47] LABS: CHOLESTEROL 133 MG/DL (< 200); CHOLESTEROL/HDL RATIO 3.5 (3.3-4.4); CRP QUANT < 0.4 mg/dL (0.00-0.90)
[2017-09-14 12:00] VITALS: BP 147/92
--- NOTE | 2017-09-14 14:39 | Diagnostic Imaging Report ---
Indications: Chest pain Technique: Single day single isotope protocol utilized. Initially, resting images obtained using IV administration 10.6 millicuries 99M technetium Myoview. Subsequently, patient underwent lexiscan stress testing. See cardiology report for details. During Lexiscan infusion, IV administration 32.8 mCi 99 M technetium Myoview. SPECT and planar images obtained. SPECT images gated to 8 phases of the cardiac cycle were also obtained, and reformatted into cine images for evaluation of ejection fraction. Comparison: none Findings: Per cardiology report, patient experienced no chest pain. Per cardiology report, resting EKG demonstrates normal sinus rhythm, with left ventricular hypertrophy. Cannot rule out anterior DE. Transient inverted T waves seen in the inferior leads post infusion. Imaging demonstrates normal post stress perfusion, no fixed nor reversible post stress perfusion defects.. Calculated post stress ejection fraction 53%. No focal wall motion abnormality Impression: Nonischemic clinical response to pharmacologic stress, per cardiology report Equivocal electrocardiographic response to pharmacologic stress, per cardiology report No imaging findings to suggest ischemia, at level of stress achieved. Calculated post stress ejection fraction 53%
[2017-09-14 15:32] VITALS: BP 147/92
--- NOTE | 2017-09-14 19:28 | Cardiology Progress Note ---
Assessment/Plan Assessment/Plan 1. Hypertension initially poorly controlled. 2. Abdominal pain, nausea and vomiting, questionably related to uncontrolled hypertension. 3. History of diverticulitis. 4. Abnormal electrocardiogram ischemia ervl neg increase losaartn ok to dc home in am Subjective Cardiovascular: Denies: chest pain, lightheadedness Respiratory: Denies: shortness of breath Gastrointestinal/Abdominal: Denies: abdomen distended Genitourinary: Denies: no symptoms Objective Last 24 Hour Vital Signs Date Time Temp Pulse Resp B/P (MAP) Pulse Ox O2 Delivery O2 Flow Rate FiO2 09/14/17 15:32 98.1 74 20 147/92 100 09/14/17 12:00 87 09/14/17 12:00 98.5 85 16 147/92 98 Room Air 09/14/17 09:52 145/91 09/14/17 08:22 71 18 Room Air 21 09/14/17 08:00 97.5 80 16 145/91 96 Room Air 09/14/17 08:00 68 09/14/17 04:00 83 09/14/17 04:00 97.7 64 16 138/90 96 Room Air 09/14/17 00:00 98.1 71 18 143/90 97 Room Air 09/14/17 00:00 78 09/13/17 21:31 74 18 Room Air 09/13/17 20:00 98.2 78 20 139/88 98 Room Air 09/13/17 20:00 90 General Appearance: no apparent distress, alert Neck: supple Cardiovascular: normal rate, regular rhythm Respiratory/Chest: lungs clear Abdomen: normal bowel sounds, non tender, soft Intake and Output 09/14/17 09/15/17 19:00 07:00 Intake Total 580 ml Balance 580 ml Intake Oral 580 ml Laboratory Tests Test 09/14/17 09:35 White Blood Count 4.1 K/UL (4.8-10.8) #L Red Blood Count 4.41 M/UL (4.70-6.10) L Hemoglobin 14.1 G/DL (14.2-18.0) L Hematocrit 41.2 % (42.0-52.0) L Mean Corpuscular Volume 93 FL (80-99) Mean Corpuscular Hemoglobin 31.9 PG (27.0-31.0) H Mean Corpuscular Hemoglobin Concent 34.2 G/DL (32.0-36.0) Red Cell Distribution Width 12.3 % (11.6-14.8) Platelet Count 247 K/UL (150-450) Mean Platelet Volume 7.7 FL (6.5-10.1) Neutrophils (%) (Auto) 49.9 % (45.0-75.0) Lymphocytes (%) (Auto) 33.3 % (20.0-45.0) Monocytes (%) (Auto) 8.7 % (1.0-10.0) Eosinophils (%) (Auto) 7.3 % (0.0-3.0) H Basophils (%) (Auto) 0.9 % (0.0-2.0) Prothrombin Time 10.7 SEC (9.30-11.50) Prothromb Time International Ratio 1.0 (0.9-1.1) Activated Partial Thromboplast Time 26 SEC (23-33) Troponin I 0.000 ng/mL (0.000-0.056) C-Reactive Protein, Quantitative < 0.4 mg/dL (0.00-0.90) Triglycerides Level 144 MG/DL (30-150) Cholesterol Level 133 MG/DL (< 200) LDL Cholesterol 65 mg/dL (<100) HDL Cholesterol 38 MG/DL (40-60) L Cholesterol/HDL Ratio 3.5 (3.3-4.4) Thyroid Stimulating Hormone (TSH) 1.800 uiU/mL (0.358-3.740) Microbiology Date/Time Source Procedure Growth Status 09/13/17 00:11 Blood Blood Culture - Preliminary NO GROWTH AFTER 24 HOURS Resulted 09/12/17 21:35 Blood Blood Culture - Preliminary NO GROWTH AFTER 24 HOURS Resulted LIZ HOLLIS Sep 14, 2017 19:28
[2017-09-14 20:32] VITALS: BP 150/97
[2017-09-14] MEDS: Atorvastatin 20mg tab ORAL SCH (20:49)
[2017-09-15 00:07] VITALS: BP 141/83
[2017-09-15 04:15] VITALS: BP 152/80
[2017-09-15] MEDS ORDERED: Losartan 50mg tab ORAL SCH (09:00)
[2017-09-15] MEDS: Heparin 5000 units/ml inj SUBQ SCH (09:00)
[2017-09-15] MEDS: Aspirin Baby 81mg ORAL SCH (09:07)
[2017-09-15 09:09] VITALS: BP 152/100
--- NOTE | 2017-09-15 10:10 | Pulmonology Progress Note ---
Assessment/Plan Assessment/Plan ASSESSMENT Abdominal pain HTN urgency acute ECG changes Diverticulosis with hx of diverticulitis diarrhea PLAN OF CARE Tele Serial troponin negative Cardio follows free of cardiac complaints ECHO with pEF 60% and RVSP of 35 due to abnormal ECG and unknown chronicity cardio recommend stress test stress test negative cardio cleared for dc O2 HHN prn CXR negative BP management with ARB, optimize further as needed Continue ASA and statin pain management CT A/P results pending GI follows Imodium prn outpatient colonoscopy diarrhea resolved symptomatic treatment DVT prophylaxis dc today case discussed and evaluated by supervising physician Subjective Allergies: Coded Allergies: No Known Allergies (Unverified , 09/12/17) Subjective denies chest pain , SOB Objective Last 24 Hour Vital Signs Date Time Temp Pulse Resp B/P (MAP) Pulse Ox O2 Delivery O2 Flow Rate FiO2 09/15/17 09:09 152/100 09/15/17 07:00 69 18 Room Air 21 09/15/17 04:15 97.7 65 18 152/80 97 Room Air 09/15/17 04:00 87 09/15/17 00:07 97.5 68 18 141/83 98 Room Air 09/15/17 00:00 92 09/14/17 20:32 96.6 70 18 150/97 98 Room Air 09/14/17 20:11 83 18 Room Air 21 09/14/17 20:00 74 09/14/17 16:00 87 09/14/17 15:32 98.1 74 20 147/92 100 09/14/17 12:00 87 09/14/17 12:00 98.5 85 16 147/92 98 Room Air Intake and Output 09/15/17 09/16/17 19:00 07:00 Intake Total 120 ml Balance 120 ml Intake Oral 120 ml # Voids 1 Objective General Appearance: no acute distress HEENT: normocephalic, atraumatic, anicteric, mucous membranes moist, PERRL Respiratory/Chest: normal breath sounds, no respiratory distress, no accessory muscle use Cardiovascular: regular rhythm - SR on tele Abdomen: normal bowel sounds, soft, non tender, non distended 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, no motor/sensory deficits, alert, oriented x 3, responsive Musculoskeletal: normal muscle bulk Microbiology Date/Time Source Procedure Growth Status 09/13/17 00:11 Blood Blood Culture - Preliminary NO GROWTH AFTER 48 HOURS Resulted 09/12/17 21:35 Blood Blood Culture - Preliminary NO GROWTH AFTER 48 HOURS Resulted Laboratory Tests 09/15/17 06:30: Troponin I 0.000 Current Medications Medications (Trade) Dose Ordered Sig/Endy Route PRN Reason Start Time Stop Time Status Last Admin Dose Admin Acetaminophen (Tylenol) 650 mg Q4H PRN ORAL FEVER (temp > 100.5F) 09/13/17 07:00 10/13/17 06:59 Albuterol/ Ipratropium (Albuterol/ Ipratropium) 3 ml Q4H PRN HHN Shortness of Breath 09/13/17 07:00 09/18/17 06:59 Aspirin (ASA) 162 mg DAILY ORAL 09/13/17 09:00 10/13/17 08:59 09/15/17 09:07 Atorvastatin Calcium (Lipitor) 20 mg BEDTIME ORAL 09/13/17 21:00 10/13/17 20:59 09/14/17 20:49 Diltiazem HCl (Cardizem) 10 mg Q1H PRN IV heart rate more than 120, 09/13/17 07:00 10/13/17 06:59 Enalaprilat (Vasotec) 2.5 mg Q6H PRN IV sbp more than 160 09/13/17 07:00 10/13/17 06:59 Heparin Sodium (Porcine) (Heparin 5000 units/ml) 5,000 units EVERY 12 HOURS SUBQ 09/13/17 09:00 10/13/17 08:59 Ketorolac Tromethamine (Toradol 30mg) 30 mg Q6H PRN IV moderate pain ( 4-6) 09/13/17 07:00 09/18/17 06:59 Losartan Potassium (Cozaar) 100 mg DAILY ORAL 09/15/17 09:00 10/15/17 08:59 09/15/17 09:09 Morphine Sulfate (Morphine Sulfate) 2 mg Q4H PRN IVP severe Pain (Pain Scale 7-10) 09/13/17 07:00 09/20/17 06:59 Nitroglycerin (Ntg) 0.4 mg Q5M PRN SL Prn Chest Pain 09/13/17 07:00 10/13/17 06:59 Ondansetron HCl (Zofran) 4 mg Q6H PRN IVP Nausea & Vomiting 09/13/17 07:00 10/13/17 06:59 Polyethylene Glycol (Miralax) 17 gm DAILYPRN PRN ORAL Constipation 09/13/17 07:00 10/13/17 06:59 Temazepam (Restoril) 15 mg HSPRN PRN ORAL Insomnia 09/13/17 07:00 09/20/17 06:[address] Hospital[facility] Flores NP Sep 15, 2017 10:10
[2017-09-15] MEDS ORDERED: COZAAR50 MG ORAL (10:12)
--- NOTE | 2017-09-19 00:16 | Discharge Summary ---
DATE OF ADMISSION: 09/13/2017 DATE OF DISCHARGE: 09/15/2017 REASON FOR ADMISSION: 51-year-old male with history of hypertension, diverticulosis, and diverticulitis two years ago, presented with abdominal pain for one day. The patient reported pain in the mid and left lower quadrant, nonradiating, sharp, and intermittent. The patient also reported non-biliary and nonbloody recurrent episodes of vomiting and two episodes of watery nonbloody diarrhea. He denied fever or chills. No history of abdominal surgery and no history of endoscopy or colonoscopy. The patient was afebrile. Upon evaluation, blood pressure was elevated at 183/115. EKG revealed T-wave inversion in leads 2, 3, and aVF. Chronicity was unknown. Troponin was negative. The patient was medicated for pain and given IV fluids, pain improved. The patient denied chest pain and shortness of breath. Initially hypertensive and normotensive afterwards with the heart rate between 70 and 100. The patient was given 325 mg of aspirin and heparin. Emergency room doctor talked with [facility] doctor regarding abnormalities on ECG. However, the corporate executive at [facility] did not believe that the patient was having acute coronary syndrome since the patient never had cardiac symptoms and appeared clinically well. CT scan of the abdomen revealed colonic thickening, possible colitis, but no other acute intraabdominal pathology. Troponin x2 were negative. No leukocytosis. Stable hemoglobin and hematocrit. Urinalysis was negative for evidence of urinary tract infection, but it showed +3 ketones, +1 occult blood, and +2 protein. Coagulation profile was stable. Electrolytes stable. Creatinine - 1.4. Glucose -138. Lactic acid- 2.2. LFT and bilirubin were within normal limits. Lipase- 82. The patient was admitted with diagnosis of abdominal pain, acute EKG changes, hypertensive emergency and diverticulosis. HOSPITAL COURSE: The patient was admitted to telemetry floor. Cardiology and GI consults were requested. Serial troponins were negative. The patient did not have any cardiac complaints. Echocardiogram revealed preserved ejection fraction of 60% and right ventricular systolic pressure of 35. Due to abnormal EKG and unknown chronicity, corporate executive recommended stress test. Stress test was negative. Dials Supervisor cleared for discharge. Supplemental oxygen and pulmonary toilet were provided as needed. Pulse oximetry was stable on room air. Chest x-ray revealed no evidence of acute cardiopulmonary pathology. Blood pressure was managed with angiotensin receptor carter and was stable. Aspirin and statin were continued. Pain management provided. GI followed. GI recommended outpatient colonoscopy. Imodium was given symptomatically as needed. Diarrhea resolved. DVT prophylaxis provided. Patient was cleared for discharge. FINAL DIAGNOSES: 1. Hypertensive urgency-resolved 2. Abdominal pain, resolved. 3. Acute EKG changes. 4. Diverticulosis with history of diverticulitis. 5. Diarrhea, resolved. DISCHARGE MEDICATIONS: See medication reconciliation list. DISCHARGE INSTRUCTIONS: The patient was discharged home; follow up with the primary medical doctor next week. Wilmer Chacon M.D. Sonya LundyMohawk Valley Health SystemSandra NEstevanPEstevan DR: GITA JOB#: [id number] CC: KIAH
--- NOTE | 2017-09-24 19:19 | Cardiology Report ---
APPROVED REPORT EKG Measurement Heart [id number] Sinus rhythm with premature atrial complexes Left axis deviation Voltage criteria for left ventricular hypertrophy Abnormal ECG
--- NOTE | 2017-09-24 19:20 | Cardiology Report ---
APPROVED REPORT EKG Measurement Heart [id number] Sinus tachycardia Left axis deviation Voltage criteria for left ventricular hypertrophy ST elevation, consider anteroseptal injury or acute infarct Abnormal ECG
--- NOTE | 2017-09-25 07:31 | Cardiology Report ---
APPROVED REPORT EXAM: Two-dimensional and M-mode echocardiogram with Doppler and color Doppler. INDICATION LV FUNCTION M-Mode DIMENSIONS IVSd0.9 (0.7-1.1cm)Left Atrium (MM)2.0 (1.6-4.0cm) LVDd4.7 (3.5-5.6cm)Aortic Root3.0 (2.0-3.7cm) PWd1.2 (0.7-1.1cm)Aortic Cusp Exc.1.9 (1.5-2.0cm) IVSs1.4 cm LVDs3.3 (2.5-4.0cm) PWs1.3 cm Normal left ventricular chamber size, systolic function and wall motion. Left ventricular ejection fraction estimated to be 60%. No evidence of left ventricular hypertrophy. No evidence of pericardial effusion All other cardiac chamber sizes are within normal limits. Mild Focal aortic valve sclerosis with adequate cusp excursion. Mild Thickened mitral valve leaflets with normal excursion. Mild Mitral annulus and aortic root calcification. Normal Pulmonic valve structure. Normal tricuspid valve structure. IVC at normal size with physiologic collapse. A color flow and spectral Doppler study was performed and revealed: No aortic regurgitation. Trace mitral regurgitation. Normal left ventricular diastolic function . mild tricuspid regurgitation. Tricuspid systolic velocities suggests peak right ventricular systolic pressure of 35 mmHg. No Pulmonic regurgitation present.
== END 2017-09-15 11:00 | disposition home or self-care (01) | DRG 199 ==
LOC: EMR 23:13 → 2E 09-13 02:21 → EDBEDREQ 09-13 02:23 → 2E 09-13 03:49
DX: I16.1 Hypertensive emergency (principal); K57.90 Diverticulosis of intestine, part unspecified, without perforation or abscess without bleeding; R10.9 Unspecified abdominal pain; R19.7 Diarrhea, unspecified; R94.31 Abnormal electrocardiogram [ECG] [EKG]
CPT/HCPCS: 36415; 71010; 74177; 78452; 80053; 80061; 81003; 82962; 83605; 83690; 84443; 84484; 85007; 85025; 85610; 85730; 86140; 87040; 93005; 93017; 93306; 94664; 99285; J2785